=== PATIENT | male | born 1955 | race Caucasian/White ===

== ENCOUNTER → 2023-10-02 12:42 | Outpatient (REF) | payer MEDICARE, OTHER, SELFPAY ==
--- NOTE | 2023-10-02 14:05 | CARDSERVDEF ---
Echocardiogram with Definity completed after protocol screening completed. Allergies verified.
Patent IV site: ____rt hand_
IV site flushed with 0.9% NaCl pre and post administration.
Diluted bolus method utilized to enhance visualization of ventricular greenberg.
Total volume given: ___3.5_ mL
Patient tolerated all procedures well without complications.
#22 placed right hand by IV team. Definity given and then INT removed. Dsg applied. No bleeding noted.
== END ==
LOC: RCS 12:42
PROVIDERS: ATTENDING PHYSICIAN Internal Medicine Cardiovascular Disease; FAMILY PHYSICIAN Internal Medicine Geriatric Medicine
DX: R94.39 Abnormal result of other cardiovascular function study (principal); R94.31 Abnormal electrocardiogram [ECG] [EKG]; R07.9 Chest pain, unspecified
CPT/HCPCS: 93017; 93350; Q9957

== ENCOUNTER → 2023-10-14 08:05 | Outpatient (REF) | payer MEDICARE, OTHER, SELFPAY ==
[2023-10-14 09:36] LABS: ALT (SGPT) 33 U/L (0-50); AST (SGOT) 31 U/L (17-59); Alkaline Phosphatase 67 U/L (38-126); Blood Urea Nitrogen 20 mg/dl (9-20); Calcium 9.2 mg/dl (8.4-10.2); Carbon Dioxide 28 mmol/L (22-30); Chloride 107 mmol/L (98-107); Glucose 95 mg/dl (70-99); Potassium 4.6 mmol/L (3.5-5.1); Sodium 141 mmol/L (135-145); Total Bilirubin 1.1 mg/dl (0.2-1.3); Total Protein 6.4 g/dl (6.3-8.2); eGFR > 60.00
[2023-10-14 20:16] LABS: FSH 5.7 mIU/ml (1.55-9.74); Luteinizing Hormone 2.47 mIU/ml (1.24-7.80); Prolactin 3.4 ng/ml (3.7-17.9)
[2023-10-15 21:36] LABS: % Free Testosterone 2.1 % (1.6-2.9); Free Testosterone 58 pg/mL (47-244); Sex Hormone Binding Globulin 23 nmol/L (19-76); Total Testosterone 272 ng/dL (300-720)
== END ==
LOC: REG 08:05
PROVIDERS: ATTENDING PHYSICIAN Physician Assistant; FAMILY PHYSICIAN Internal Medicine Geriatric Medicine
DX: E22.1 Hyperprolactinemia (principal)
CPT/HCPCS: 36415; 80053; 83001; 83002; 84146; 84270; 84402; 84403

== ENCOUNTER → 2024-01-28 08:00 | Outpatient (REF) | payer MEDICARE, OTHER, SELFPAY ==
[2024-01-28 08:35] LABS: % Eosinophils 2.9 % (0-6); % Immature Granulocytes 0.2 % (0-0.5); % Lymphocytes 25.8 % (20.5-51.1); % Monocytes 6.4 % (1.7-9.3); % Neutrophils 63.7 % (42.2-75.2); Absolute Basophils 0.1 10^3/uL (0-0.2); Absolute Eosinophils 0.1 10^3/uL (0-0.7); Absolute Lymphocytes 1.2 10^3/uL (1.2-3.4); Absolute Monocytes 0.3 10^3/uL (0.1-0.6); Absolute Neutrophils 3.1 10^3/uL (1.4-6.5); Hemoglobin 15.7 g/dL (13.0-18.0); Mean Corp Hgb Conc. 34.9 g/dL (33.0-37.0); Mean Corpuscular Volume 85.9 fL (80.0-94.0); Mean Platelet Volume 9.3 fL (7.4-10.4); Nucleated Red Blood Cells % 0 % (-); Platelet Count 188 10^3/uL (130-400); Red Blood Cell Count 5.24 10^6/uL (4.70-6.10); Red Cell Dist. Width 13.2 % (11.5-14.5); White Blood Cell Count 4.8 10^3/uL (4.8-10.8)
[2024-01-28 08:37] LABS: Urine Albumin Negative (Neg - Trace); Urine Bilirubin Negative (Negative); Urine Character Clear (Clear); Urine Color Yellow; Urine Glucose Negative (Negative); Urine Ketone Negative (Negative); Urine Leukocyte Negative (Negative); Urine Nitrite Negative (Negative); Urine Occult Blood Negative (Negative); Urine Urobilinogen Negative (Neg - 1+)
[2024-01-28 09:15] LABS: ALT (SGPT) 32 U/L (0-50); AST (SGOT) 30 U/L (17-59); Albumin 4.1 g/dl (3.5-5.0); Alkaline Phosphatase 63 U/L (38-126); Blood Urea Nitrogen 15 mg/dl (9-20); Calcium 9.5 mg/dl (8.4-10.2); Carbon Dioxide 29 mmol/L (22-30); Chloride 106 mmol/L (98-107); Glucose 99 mg/dl (70-99); HDL Cholesterol 39 mg/dl; LDL Cholesterol, Calculated 75 mg/dl; Potassium 4.5 mmol/L (3.5-5.1); Sodium 142 mmol/L (135-145); Total Bilirubin 0.9 mg/dl (0.2-1.3); Total Cholesterol 149 mg/dl (50-199); Total Protein 6.7 g/dl (6.3-8.2); Triglyceride 177 mg/dl (10-149); Very Low Density Lipoprotein 35 mg/dl (0-30); eGFR > 60.00
[2024-01-28 09:20] LABS: Vitamin D, 25-OH*** 44.8 ng/mL (30-80)
[2024-01-28 09:34] LABS: PSA, Total - Screen 3.58 ng/ml (0.0-4.0)
== END ==
LOC: REG 08:00
PROVIDERS: ATTENDING PHYSICIAN Internal Medicine Geriatric Medicine
DX: Z79.899 Other long term (current) drug therapy (principal); Z12.5 Encounter for screening for malignant neoplasm of prostate; I10 Essential (primary) hypertension; E78.2 Mixed hyperlipidemia; Z00.00 Encounter for general adult medical examination without abnormal findings
CPT/HCPCS: 36415; 80053; 80061; 81003; 82306; 85025; G0103

== ENCOUNTER → 2024-08-27 08:28 | Outpatient (REF) | payer MEDICARE, OTHER, SELFPAY ==
[2024-08-27 10:59] LABS: ALT (SGPT) 29 U/L (0-50); AST (SGOT) 28 U/L (17-59); Albumin 4.2 g/dl (3.5-5.0); Alkaline Phosphatase 66 U/L (38-126); Blood Urea Nitrogen 18 mg/dl (9-20); Calcium 9.2 mg/dl (8.4-10.2); Carbon Dioxide 25 mmol/L (22-30); Chloride 107 mmol/L (98-107); Glucose 99 mg/dl (70-99); Potassium 4.3 mmol/L (3.5-5.1); Sodium 141 mmol/L (135-145); Total Bilirubin 0.8 mg/dl (0.2-1.3); Total Protein 6.6 g/dl (6.3-8.2); eGFR > 60.00
[2024-08-27 16:27] LABS: FSH 5.5 mIU/ml (1.55-9.74); Free T4 0.76 ng/dl (0.78-2.19); Luteinizing Hormone 2.19 mIU/ml (1.24-7.80); Prolactin 2.2 ng/ml (3.7-17.9)
[2024-08-27 16:41] LABS: TSH 1.22 uIU/ml (0.47-4.68)
[2024-08-27 16:54] LABS: Cortisol, Random 10.3 ug/dl
[2024-08-28 08:11] LABS: Adrenocorticotropic Hormone 7.8 pg/mL (7.2-63.3)
[2024-08-28 10:20] LABS: % Free Testosterone 2.1 % (1.6-2.9); Free Testosterone 55 pg/mL (47-244); Sex Hormone Binding Globulin 26 nmol/L (19-76); Testosterone, Bioavailable 143 ng/dL (131-682); Total Testosterone 263 ng/dL (300-720)
[2024-08-28 15:45] LABS: IGF-1 Z Score Calculation 1.5; Insulin-like Growth Factor I 201 ng/mL (27-246)
== END ==
LOC: REG 08:28
PROVIDERS: ATTENDING PHYSICIAN Physician Assistant; FAMILY PHYSICIAN Internal Medicine Geriatric Medicine
DX: E22.1 Hyperprolactinemia (principal)
CPT/HCPCS: 36415; 80053; 82024; 82533; 83001; 83002; 84146; 84270; 84305; 84402; 84403; 84439; 84443

== ENCOUNTER → 2024-12-23 08:12 | Outpatient (REF) | payer MEDICARE, OTHER, SELFPAY ==
[2024-12-23 09:58] LABS: ALT (SGPT) 35 U/L (0-50); AST (SGOT) 29 U/L (17-59); Albumin 4.4 g/dl (3.5-5.0); Alkaline Phosphatase 64 U/L (38-126); Blood Urea Nitrogen 18 mg/dl (9-20); Calcium 9.2 mg/dl (8.4-10.2); Carbon Dioxide 25 mmol/L (22-30); Chloride 109 mmol/L (98-107); Glucose 100 mg/dl (70-99); Potassium 4.2 mmol/L (3.5-5.1); Sodium 143 mmol/L (135-145); Total Bilirubin 0.8 mg/dl (0.2-1.3); Total Protein 6.6 g/dl (6.3-8.2); eGFR > 60.00
[2024-12-23 10:17] LABS: Free T4 0.85 ng/dl (0.78-2.19)
[2024-12-23 10:21] LABS: Luteinizing Hormone 2.54 mIU/ml (1.24-7.80); Prolactin 10.3 ng/ml (3.7-17.9)
[2024-12-23 10:31] LABS: Cortisol, Random 14.9 ug/dl; TSH 0.98 uIU/ml (0.47-4.68)
[2024-12-23 12:03] LABS: FSH 5.6 mIU/ml (1.55-9.74)
[2024-12-24 15:08] LABS: Adrenocorticotropic Hormone 16.5 pg/mL (7.2-63.3)
[2024-12-24 16:14] LABS: IGF-1 Z Score Calculation 1.5; Insulin-like Growth Factor I 202 ng/mL (27-246)
[2024-12-24 20:43] LABS: Free Testosterone 53 pg/mL (47-244); Sex Hormone Binding Globulin 26 nmol/L (19-76); Total Testosterone 265 ng/dL (300-720)
== END ==
LOC: REG 08:12
PROVIDERS: ATTENDING PHYSICIAN Physician Assistant; FAMILY PHYSICIAN Internal Medicine Geriatric Medicine
DX: E22.1 Hyperprolactinemia (principal)
CPT/HCPCS: 36415; 80053; 82024; 82533; 83001; 83002; 84146; 84270; 84305; 84402; 84403; 84439; 84443

== ENCOUNTER → 2025-04-16 08:58 | Outpatient (REF) | payer MEDICARE, OTHER, SELFPAY ==
[2025-04-16 09:54] LABS: Hematocrit 45.9 % (39.0-52.0); Hemoglobin 15.8 g/dL (13.0-18.0); Mean Corp Hgb Conc. 34.4 g/dL (33.0-37.0); Mean Corpuscular Volume 87.1 fL (80.0-94.0); Nucleated Red Blood Cells % 0 % (-); Platelet Count 185 10^3/uL (130-400); Red Cell Dist. Width 13.2 % (11.5-14.5)
[2025-04-16 10:08] LABS: Urine Character Clear (Clear)
[2025-04-16 10:28] LABS: ALT (SGPT) 36 U/L (0-50); AST (SGOT) 28 U/L (17-59); Albumin 4.4 g/dl (3.5-5.0); Alkaline Phosphatase 64 U/L (38-126); Blood Urea Nitrogen 16 mg/dl (9-20); Calcium 9.3 mg/dl (8.4-10.2); Carbon Dioxide 26 mmol/L (22-30); Chloride 108 mmol/L (98-107); Glucose 95 mg/dl (70-99); HDL Cholesterol 35 mg/dl; LDL Cholesterol, Calculated 71 mg/dl; Potassium 4.4 mmol/L (3.5-5.1); Sodium 140 mmol/L (135-145); Total Protein 6.8 g/dl (6.3-8.2); Very Low Density Lipoprotein 43 mg/dl (0-30); eGFR > 60.00
[2025-04-16 10:44] LABS: Vitamin D, 25-OH*** 41.7 ng/mL (30-80)
[2025-04-16 10:57] LABS: PSA, Total - Screen 3.52 ng/ml (0.0-4.0)
== END ==
LOC: REG 08:58
PROVIDERS: ATTENDING PHYSICIAN Internal Medicine Geriatric Medicine
DX: E78.2 Mixed hyperlipidemia (principal); I10 Essential (primary) hypertension; Z79.899 Other long term (current) drug therapy; Z12.5 Encounter for screening for malignant neoplasm of prostate
CPT/HCPCS: 36415; 80053; 80061; 81003; 82306; 85025; G0103

== ENCOUNTER → 2025-05-26 07:54 | Outpatient (REF) | payer MEDICARE, OTHER, SELFPAY ==
[2025-05-26 09:34] LABS: FSH 5.3 mIU/ml (1.55-9.74)
[2025-05-26 09:39] LABS: ALT (SGPT) 32 U/L (0-50); AST (SGOT) 26 U/L (17-59); Albumin 4.4 g/dl (3.5-5.0); Alkaline Phosphatase 62 U/L (38-126); Blood Urea Nitrogen 13 mg/dl (9-20); Calcium 9.4 mg/dl (8.4-10.2); Carbon Dioxide 25 mmol/L (22-30); Chloride 108 mmol/L (98-107); Glucose 103 mg/dl (70-99); Potassium 4.3 mmol/L (3.5-5.1); Sodium 140 mmol/L (135-145); Total Protein 7.2 g/dl (6.3-8.2); eGFR > 60.00
[2025-05-26 09:47] LABS: TSH 1.17 uIU/ml (0.47-4.68)
[2025-05-26 09:58] LABS: Cortisol, Random 11.6 ug/dl
[2025-05-28 09:50] LABS: CRP, Ultra Sensitive 0.94 mg/L (0.30-5.00)
[2025-05-28 15:41] LABS: Lipoprotein a (Lp a) 9 mg/dL (<=29)
[2025-05-29 02:52] LABS: IGF-1 Z Score Calculation 1.4
== END ==
LOC: REG 07:54
PROVIDERS: ATTENDING PHYSICIAN Internal Medicine Geriatric Medicine; OTHER PHYSICIAN Physician Assistant
DX: E22.1 Hyperprolactinemia (principal); Z00.00 Encounter for general adult medical examination without abnormal findings; I10 Essential (primary) hypertension; E78.2 Mixed hyperlipidemia; I11.9 Hypertensive heart disease without heart failure; Z79.899 Other long term (current) drug therapy; F41.1 Generalized anxiety disorder; Z13.89 Encounter for screening for other disorder
CPT/HCPCS: 36415; 80053; 82024; 82172; 82533; 83001; 83002; 83695; 84146; 84270; 84305; 84402; 84403; 84439; 84443; 86141